=== PATIENT | female | born 1960 | race Caucasian/White ===

== ENCOUNTER 2017-09-26 13:59 | Outpatient (CLI) | payer BC | END 2017-09-26 14:00 | disposition home or self-care (01) | LOC: BICMAMMO 13:59 | PROVIDERS: ATTEND Obstetrics & Gynecology | DX: Z12.31 Encounter for screening mammogram for malignant neoplasm of breast (principal) | CPT/HCPCS: 77063; 77067 ==

== ENCOUNTER 2018-03-27 11:25 | Outpatient (CLI) | payer BC ==
--- NOTE | 2018-03-27 11:54 | RAD ---
TWO VIEW CHEST: Indication: Cough and wheezing, shortness of breath. FINDINGS: There is no consolidation, effusion, or pneumothorax. Cardiac silhouette is normal in size. IMPRESSION: No focal consolidation. POS: [facility]
== END 2018-03-27 11:26 | disposition home or self-care (01) ==
LOC: BICRAD 11:25
PROVIDERS: ATTEND Physician Assistant Medical
DX: R06.2 Wheezing (principal)
CPT/HCPCS: 71046

== ENCOUNTER 2019-06-17 08:43 | Outpatient (CLI) | payer BC ==
--- NOTE | 2019-06-17 09:27 | BD ---
EXAM: Bone densitometry using DEXA HISTORY: 58 yo female. Screening for postmenopausal osteoporosis FINDINGS: L1--bone mineral density 1.028 g/sq cm; T score 0.3 ; Z score 1.4 L2--bone mineral density 1.145 g/sq cm; T score 1.1 ; Z score 2.2 L3--bone mineral density 1.232 g/sq cm; T score 1.3 ; Z score 2.6 L4--bone mineral density 1.311 g/sq cm; T score 2.3 ; Z score 3.5 Total L1-L4--bone mineral density 1.184 g/sq cm; T score 1.2 ; Z score 2.4 Left femoral neck--bone mineral density0.787; T score -0.6 ; Z score 0.6 Total proximal left femur--bone mineral density 1.007; T score 0.5 ; Z score 1.3 IMPRESSION: Normal BMD
== END 2019-06-17 08:44 | disposition home or self-care (01) ==
LOC: BICMAMMO 08:43
PROVIDERS: ATTEND Student in an Organized Health Care Education/Training Program
DX: Z13.820 Encounter for screening for osteoporosis (principal)
CPT/HCPCS: 77080

== ENCOUNTER 2023-10-29 14:16 | Outpatient (CLI) | payer BC | END 2023-10-29 14:17 | disposition home or self-care (01) | LOC: SCSRAD 14:16 | PROVIDERS: ATTEND Family Medicine | DX: M25.562 Pain in left knee (principal); M17.12 Unilateral primary osteoarthritis, left knee; Z98.890 Other specified postprocedural states ==